=== PATIENT | female | born 1995 | race Caucasian/White ===

== ENCOUNTER 2016-07-06 07:27 | Emergency (ER) | payer OTHER ==
[~2016-07-06] VITALS: Ht 160 cm; Wt 71.3 kg
[~2016-07-06 07:27] MED LIST: B-COTAB18 PO; BCPILLS PO; DIPH25CA5 PO; EPP3/2 IM; IBUP-1459 PO
[2016-07-06 07:30] VITALS: TEMP 36.7; Ht 160 cm; Wt 71.3 kg
[2016-07-06] MEDS ORDERED: FEXO5TAB2 PO (07:58)
[2016-07-06] MEDS ORDERED: PRED20TA PO (07:59)
[2016-07-06] MEDS ORDERED: DIPH1TAB87 PO (08:04)
[2016-07-06 08:54] LABS: BASO % 0.2 %; BASO ABS # 0.02 K/uL (0-0.2); COMPLETE YES; EOS % 0.4 %; IG% 0.3 %; LYMPH % 18.6 %; MEAN CELL VOLUME 83.8 fL (80-100); MEAN CORPUSCULAR HEMOGLOBIN 30.2 pg (25-34); MEAN PLATELET VOLUME 10.1 fL (7.4-10.4); MONO % 4.3 %; NEUT % 76.2 %; PLATELET COUNT 314 K/uL (130-400); RED BLOOD COUNT 5.37 M/uL (4.2-5.4); WHITE BLOOD COUNT 10.76 K/uL (4.8-10.8)
[2016-07-06 09:02] LABS: URINE APPEARANCE CLEAR (CLEAR); URINE BILIRUBIN NEG (NEG); URINE COLOR DK YELLOW; URINE NITRITE NEG (NEG); URINE SPECIFIC GRAVITY 1.011 (1.000-1.030); UROBILINOGEN NEG (NEG)
[2016-07-06 09:03] LABS: PARTIAL THROMBOPLASTIN RATIO 1.1; PROTHROMBIN TIME (PATIENT) 10.9 SECONDS (9.0-12.0)
[2016-07-06 09:06] LABS: MANUAL MICROSCOPIC REQUIRED? NO; REVIEW REQ? NO
[2016-07-06 09:10] LABS: BLOOD UREA NITROGEN 10 mg/dl (7-18); BUN/CREATININE RATIO 13.8 (10-20); CALCIUM 9.3 mg/dl (8.5-10.1); CARBON DIOXIDE 26 mmol/L (21-32); CHLORIDE 104 mmol/L (98-107); CREATININE 0.71 mg/dl (0.60-1.20); GLUCOSE 95 mg/dl (70-99); POTASSIUM 4.1 mmol/L (3.5-5.1); SODIUM 139 mmol/L (136-145)
[2016-07-06 09:14] LABS: ALKALINE PHOSPHATASE 65 U/L (45-117); ALT/SGPT 25 U/L (12-78); AST/SGOT 12 U/L (15-37); C-REACTIVE PROTEIN < 0.29 mg/dl (0-0.29)
--- NOTE | 2016-07-06 09:17 | DIAGNOSTIC IMAGING REPORT ---
CT OF THE HEAD WITHOUT CONTRAST CLINICAL HISTORY: Frontal headaches. Nosebleed. COMPARISON STUDY: No previous studies for comparison. CT DOSE: 614.27 mGy.cm TECHNIQUE: Helical axial images of the head were obtained without IV contrast. Automated exposure control was utilized for the study. FINDINGS: No acute intracranial hemorrhage, midline shift or mass effect is present. Brain volume is normal. Ventricular system is normal. Basilar cisterns are patent. There are no extra-axial collections. Lin-white differentiation is maintained. There are no findings to suggest acute dural sinus thrombosis or acute territorial infarct. There are no significant calvarial abnormalities. Visualized portions of the sinuses and the mastoid air cells are clear. IMPRESSION: No acute intracranial findings. Electronically signed by: Nolan Hastings M.D. 07/06/2016 9:15 AM Dictated Date/Time: 07/06/2016 9:13 AM
[2016-07-06 09:45] LABS: LYME DISEASE AB IGG NEG (NEG); LYME DISEASE AB IGM NEG (NEG)
[2016-07-06] MEDS ORDERED: HYDR-5688 PO (10:09)
--- NOTE | 2016-07-06 10:17 | EMERGENCY ROOM VISIT NOTE ---
History First contact with patient: 07:37 Chief Complaint: RECTAL BLEEDING Stated Complaint: RECTAL BLEEDING,NOSE BLEED,HEADACHE Nursing Triage Summary: Patient c/o rectal bleeding "when I deficate". "Bright red blood". Denies pain. I've pooped Saturday, Saturday and and it's unusual for me to poop 3 times a week". Saturday had a nose bleed that lasted 15 minutes, left sided. Had another yesterday morning and another this morning. Abdominal pain at beginning of the week but it was "due to my period". Nausea for the last month intermittently. Also c/o headache frontal, intermittent, worse with bright light like at the vet clinic and bright lights from passing cars in the dark. X 1 month. History of Present Illness The patient is a 20 year old female who presents to the Emergency Room with multiple complaints, including bright red blood per rectum, mild abdominal cramping, mild intermittent nosebleeds and history of nausea, vomiting and diarrhea last week. 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 She developed a rash on her right forearm earlier last week. She started an 8 day prednisone taper from medicine that she had at home. The patient takes prednisone as needed for seasonal allergies. The patient reports that within a few days, she then started to develop additional GI symptoms. She reports that she only had diarrhea for approximately 24 hours, and the nausea and vomiting also quickly resolved. The patient then started to notice rectal bleeding on Saturday with a large bowel movement. She reports that the bleeding has continually declined. It does not seem to be mixed into the stool. The patient denies any prior history of GI bleed or known hemorrhoids. She has had chronic abdominal and back pain that the mother attributes to premature . At the current time, the patient denies any significant abdominal cramping, and associates current cramping with menstruation. The patient denies or unusual dysmenorrhea. She has also had mild intermittent headaches for several years, with TRANSLITERATOR suggesting that headaches could be secondary to menstruation. Her oral dosing was changed, and has a difference with her headaches. At the current time, she denies any significant discomfort, fevers or chills. Review of Systems HEENT: Denies dizziness, visual problems, hearing loss, tinnitus. Denies difficulty swallowing or oral lesions. PULMONARY: Denies cough, shortness of breath, sputum production or hemoptysis. CARDIOVASCULAR: Denies chest pain, palpitations, dyspnea on exertion, orthopnea or peripheral edema. GASTROINTESTINAL: Denies current diarrhea, constipation, nausea, vomiting, or abdominal pain. GENITOURINARY: Denies dysuria, frequency, urgency or nocturia. NEUROLOGIC: Denies history of epilepsy, CVA, TIA or chronic headaches. MUSCULOSKELETAL: Denies history of joint tenderness/swelling. SKIN: Denies rashes or lesions. PSYCHIATRIC: Denies history of depression or mental illness. ENDOCRINE: Denies history of diabetes or thyroid disorders. Past Medical/Surgical History Medical Problems: (1) History of fracture of nasal bone (2) Lumbar radiculopathy Family History Diabetes mellitus Social History Smoking Status: Never Smoker Marital Status: single Occupation Status: employed Current/Historical Medications Scheduled B-Complex Vitamins (Vitamin B Complex), 1 TAB PO DAILY Control Pills ( Control Pills), 1 TAB PO DAILY Fexofenadine-Pseudoephedrine (Ariane-D 12 Hour Allergy), 1 TAB PO BID Prednisone (Prednisone), 20 MG PO TAPER DOSE Scheduled PRN Diphenhydramine Hcl (Benadryl Allergy), 25 MG PO Q4H PRN for Itching Epinephrine (Epipen), 0.3 MG IM UD PRN for ALLERGIC REACTION Hydrocodone/Acetaminophen 5MG/325MG ([place] 5MG/325MG), 1-2 TABLET PO Q4H PRN for Pain Ibuprofen (Motrin), 400 MG PO Q6H PRN for Pain Allergies Coded Allergies: Bee Venom (Verified Allergy, Severe, ANAPHYLAXIS, 07/06/16) Clavulanic Acid (Unverified Allergy, Mild, Rash, 07/06/16) Latex (Unverified Allergy, Mild, RASH, 07/06/16) Uncoded Allergies: BETALACTAMASEIN (Allergy, Mild, 05/06/09) TYLENOL #4 (Adverse Reaction, Mild, Nausea, 02/05/16) Physical Exam Vital Signs Date Time Temp Pulse Resp B/P Pulse Ox O2 Delivery O2 Flow Rate FiO2 07/06/16 09:28 84 16 126/85 100 Room Air 07/06/16 07:30 36.7 98 16 151/103 99 Room Air Physical Exam CONSTITUTIONAL: Healthy and well nourished. Alert and oriented X 3 with positive affect. Patient does not appear in any acute distress. HEENT: Normocephalic, atraumatic. Pupils equal, round and reactive. Ears and nares are clear with no active epistaxis or prominent Kiesselbach plexus. No scleral icterus or conjunctival pallor. OROPHARYNX: No tonsillar hypertrophy, posterior erythema or other oral lesions. NECK: Full active range of motion without discomfort. No JVD or carotid bruits. No nuchal rigidity. RESPIRATORY: Clear to auscultation bilaterally with no wheezing, crackles, rhonchi or stridor. CARDIOVASCULAR: Regular rate and rhythm with no murmurs, rubs or gallops. GASTROINTESTINAL: Bowel sounds present in all quadrants. Abdomen is soft and nontender to palpation. No hepatosplenomegaly. Negative CVA tenderness. No abdominal rigidity, guarding or rebound. Digital rectal exam was performed to show no obvious external or internal hemorrhoids. Stool Hemoccult was positive. There is soft stool within the rectal vault. MUSCULOSKELETAL: Full range of motion of all joints without discomfort. INTEGUMENTARY: The patient has an erythematous raised rash on her right dorsal forearm with well-defined linear arrangement. There are no vesicles, pustules, excoriation, desquamation or bullae. NEUROLOGIC: Cranial nerves II-XII grossly intact. No focal neurologic deficits noted. Medical Decision & Procedures ER Provider Diagnostic Interpretation: Noncontrast CT of the head does not show any evidence for intracranial bleed, midline shift or mass effect. Radiologist report is as follows: CT OF THE HEAD WITHOUT CONTRAST CLINICAL HISTORY: Frontal headaches. Nosebleed. COMPARISON STUDY: No previous studies for comparison. CT DOSE: 614.27 mGy.cm TECHNIQUE: Helical axial images of the head were obtained without IV contrast. Automated exposure control was utilized for the study. FINDINGS: No acute intracranial hemorrhage, midline shift or mass effect is present. Brain volume is normal. Ventricular system is normal. Basilar cisterns are patent. There are no extra-axial collections. Lin-white differentiation is maintained. There are no findings to suggest acute dural sinus thrombosis or acute territorial infarct. There are no significant calvarial abnormalities. Visualized portions of the sinuses and the mastoid air cells are clear. IMPRESSION: No acute intracranial findings. Laboratory Results 07/06/16 08:33 Red Blood Count 5.37, Mean Corpuscular Volume 83.8, Mean Corpuscular Hemoglobin 30.2, Mean Corpuscular Hemoglobin Concent 36.0, Mean Platelet Volume 10.1, Neutrophils (%) (Auto) 76.2, Lymphocytes (%) (Auto) 18.6, Monocytes (%) (Auto) 4.3, Eosinophils (%) (Auto) 0.4, Basophils (%) (Auto) 0.2, Neutrophils # (Auto) 8.21, Lymphocytes # (Auto) 2.00, Monocytes # (Auto) 0.46, Eosinophils # (Auto) 0.04, Basophils # (Auto) 0.02 07/06/16 08:33 Test 07/06/16 08:33 White Blood Count 10.76 K/uL (4.8-10.8) Red Blood Count 5.37 M/uL (4.2-5.4) Hemoglobin 16.2 g/dL (12.0-16.0) Hematocrit 45.0 % (37-47) Mean Corpuscular Volume 83.8 fL (80-100) Mean Corpuscular Hemoglobin 30.2 pg (25-34) Mean Corpuscular Hemoglobin Concent 36.0 g/dl (32-36) Platelet Count 314 K/uL (130-400) Mean Platelet Volume 10.1 fL (7.4-10.4) Neutrophils (%) (Auto) 76.2 % Lymphocytes (%) (Auto) 18.6 % Monocytes (%) (Auto) 4.3 % Eosinophils (%) (Auto) 0.4 % Basophils (%) (Auto) 0.2 % Neutrophils # (Auto) 8.21 K/uL (1.4-6.5) Lymphocytes # (Auto) 2.00 K/uL (1.2-3.4) Monocytes # (Auto) 0.46 K/uL (0.11-0.59) Eosinophils # (Auto) 0.04 K/uL (0-0.5) Basophils # (Auto) 0.02 K/uL (0-0.2) RDW Standard Deviation 36.6 fL (36.4-46.3) RDW Coefficient of Variation 12.0 % (11.5-14.5) Immature Granulocyte % (Auto) 0.3 % Immature Granulocyte # (Auto) 0.03 K/uL (0.00-0.02) Erythrocyte Sedimentation Rate 5 mm/hr (0-21) Prothrombin Time 10.9 SECONDS (9.0-12.0) Prothromb Time International Ratio 1.0 (0.9-1.1) Activated Partial Thromboplast Time 28.9 SECONDS (21.0-31.0) Partial Thromboplastin Ratio 1.1 Urine Color DK YELLOW Urine Appearance CLEAR (CLEAR) Urine pH 7.0 (4.5-7.5) Urine Specific [place] 1.011 (1.000-1.030) Urine Protein NEG (NEG) Urine Glucose (UA) NEG (NEG) Urine Ketones NEG (NEG) Urine Occult Blood TRACE (NEG) Urine Nitrite NEG (NEG) Urine Bilirubin NEG (NEG) Urine Urobilinogen NEG (NEG) Urine Leukocyte Esterase TRACE (NEG) Urine WBC (Auto) 1-5 /hpf (0-5) Urine RBC (Auto) 0-4 /hpf (0-4) Urine Hyaline Casts (Auto) 0 /lpf (0-5) Urine Epithelial Cells (Auto) 5-10 /lpf (0-5) Urine Bacteria (Auto) NEG (NEG) Urine Test NEG (NEG) Anion Gap 9.0 mmol/L (3-11) Est Creatinine Clear Calc Drug Dose 117.6 ml/min Estimated GFR () 140.1 Estimated GFR (Non- 120.9 BUN/Creatinine Ratio 13.8 (10-20) Calcium Level 9.3 mg/dl (8.5-10.1) Total Bilirubin 0.4 mg/dl (0.2-1) Direct Bilirubin 0.1 mg/dl (0-0.2) Aspartate Amino Transf (AST/SGOT) 12 U/L (15-37) Alanine Aminotransferase (ALT/SGPT) 25 U/L (12-78) Alkaline Phosphatase 65 U/L (45-117) Total Creatine Kinase 39 U/L (26-192) C-Reactive Protein < 0.29 mg/dl (0-0.29) Total Protein 7.5 gm/dl (6.4-8.2) Albumin 4.1 gm/dl (3.4-5.0) Lipase 134 U/L (73-393) Lyme Disease IgG Antibody NEG (NEG) Lyme Disease IgM Antibody NEG (NEG) The above labs were reviewed and are grossly normal. Lyme screen is negative. ED Course Patient history and physical exam were performed. Nurse's notes were reviewed. Vital signs were reviewed and were normal. The patient did not appear in any acute distress. IV access was established, and labs were drawn. The patient refused any analgesics. Review of labs shows no abnormal findings. The patient is not anemic. She has no lymphocytosis. LFTs and lipase are normal. CRP and sedimentation rate are normal. Urinalysis is not suggestive of infection. Noncontrast CT of the head also is unremarkable. The patient was unable to provide a stool sample. She was advised of her normal workup today. I did encourage her to follow-up with [facility] gastroenterology for further reevaluation and management. She was instructed to return to the emergency department over the weekend for any progressively worsening bleeding, pain or fever. Regarding the patient's intermittent headaches and back pain, the patient reports she cannot tolerate tramadol or oxycodone because of sedating side effects. The patient reports that she has tolerated Vicodin in the past. The patient was provided a prescription in for [place] 5/325, dispensed #20 without refills. She was advised that this medication can cause constipation and drowsiness. The patient was happy with plan of care, voiced understanding of all discharge instructions, and was discharged with her mother. Medical Decision Patient presents to the emergency Department with primary complaint of bright red rectal bleeding that is improving at this point. Her physical exam does not show any evidence for hemorrhoids. Bleeding polyp was also considered, along with inflammatory bowel condition. CRP and sedimentation rate are normal. The patient's coagulation studies are normal. She is not anemic. She is also afebrile and has no leukocytosis. At this point, I do not feel that any advanced abdominal imaging is warranted. Her abdominal exam is benign, and I therefore do not suspect diverticulitis, appendicitis, ischemic gut or mesenteric adenitis. The patient reports that she does have intermittent nosebleeds. Her exam today does not show any intranasal findings. Head CT does not show any evidence for intracranial mass or bleed. At this point, I do feel that the patient is safe for outpatient management. She was instructed to return with any further concerns. Impression Primary Impression: Rectal bleed Additional Impressions: Generalized headaches Epistaxis Departure Information Prescriptions Hydrocodone/Acetaminophen 5MG/325MG ([place] 5MG/325MG) Tab 1-2 TABLET PO Q4H Y for Pain, #20 TAB For Initial Treatment Prov: Camden Wakefield PA 07/06/16 Referrals Agnieszka Britt,P.A. (PCP) Patient Instructions My [facility] Problem Qualifiers
[2016-07-06 10:27] VITALS: BP 116/79; PULSE 80; O2SAT 100
== END 2016-07-06 10:28 | disposition home or self-care (01) ==
LOC: C.EDB 07:28 → C.EDA 10:28
DX: K62.5 Hemorrhage of anus and rectum (principal); R51 Headache; R04.0 Epistaxis; R10.9 Unspecified abdominal pain; G89.29 Other chronic pain; M54.16 Radiculopathy, lumbar region; Z83.3 Family history of diabetes mellitus; Z79.3 Long term (current) use of hormonal contraceptives

== ENCOUNTER → 2016-07-19 | Outpatient (CLI) | payer OTHER ==
[~2016-07-19] MED LIST changes: +DIPH1TAB87 PO; -DIPH25CA5 PO; +FEXO5TAB2 PO; +HYDR-5688 PO; +PRED20TA PO
== END | disposition home or self-care (01) ==
LOC: C.LABSPEC 19:00
PROVIDERS: ATTEND Internal Medicine Gastroenterology
DX: K62.5 Hemorrhage of anus and rectum (principal); R11.0 Nausea

== ENCOUNTER → 2016-07-26 | Outpatient (CLI) | payer OTHER ==
--- NOTE | 2016-07-26 07:51 | DIAGNOSTIC IMAGING REPORT ---
ULTRASOUND ABDOMEN COMPLETE CLINICAL HISTORY: Nausea. Rectal bleeding. COMPARISON STUDY: Abdominal CT dated 12/05/2010. TECHNIQUE: Real-time, grayscale, and color flow sonography of the abdomen was performed. Images are reviewed in the transverse and longitudinal planes. FINDINGS: Liver: The liver is normal in size and echotexture. There is no intrahepatic biliary ductal dilatation. The main portal vein is patent. Gallbladder: The gallbladder is normal in appearance. No gallstones are identified. There is no gallbladder wall thickening or pericholecystic fluid. A sonographic Perez's sign is reportedly absent. The common bile duct measures up to 0.3 cm in diameter. Pancreas: Visualized portions of the pancreatic head and body are normal in appearance. Spleen: The spleen is normal in size and echotexture, measuring 11.0 cm in length. Kidneys: The kidneys are normal in size and echotexture. There is no hydronephrosis. The right kidney measures 10.8 cm in length and the left kidney measures 9.8 cm in length. No shadowing calculi are identified. Abdominal vasculature: Visualized portions of the abdominal aorta and IVC are normal in appearance. Ascites: None. IMPRESSION: Unremarkable sonographic assessment of the abdomen. Electronically signed by: Cali Yen M.D. 07/26/2016 7:50 AM Dictated Date/Time: 07/26/2016 7:49 AM
== END | disposition home or self-care (01) ==
LOC: C.ULTR 06:34
PROVIDERS: ATTEND Internal Medicine Gastroenterology
DX: K62.5 Hemorrhage of anus and rectum (principal); R11.0 Nausea

== ENCOUNTER → 2017-02-06 | Outpatient (CLI) | payer OTHER ==
[~2017-02-06] MED LIST changes: -HYDR-5688 PO
[2017-02-06 11:20] LABS: LYME DISEASE AB IGG NEG (NEG); LYME DISEASE AB IGM NEG (NEG)
== END ==
LOC: C.LAB1850 09:04
PROVIDERS: ATTEND Physician Assistant
DX: L30.9 Dermatitis, unspecified (principal)

== ENCOUNTER 2023-05-10 04:52 | Inpatient (IN) ==
[2023-05-10] MEDS ORDERED: LIDOCAINE 1% LOCAL 20 ML VIAL INFIL PRN (06:51)
--- NOTE | 2023-05-10 06:54 | History & Physical Report ---
Date of Service May 10, 2023 Assessment & Plan (1) Supervision of normal intrauterine in primigravida: Plan: Admit to L&D. EFM/toco. Labs. IV. OK for epidural if she desires. History of Present Illness Chief Complaint: contractions Primary Care Provider: Dipti Cantrell PA-C 27yo @ 38 04/07, contractions overnight. No ROM. + movement. Membranes stripped in office yesterday. FHT Cat 1 Yeoman Q 2 SVE 4cm on arrival, 6cm 1h later per RN exam. Allergies Allergy/AdvReac Type Severity Reaction Status Date / Time bee venom protein (honey bee) Allergy Rash Verified 05/10/23 05:13 celecoxib Allergy Rash Verified 05/10/23 05:13 codeine Allergy Rash Verified 05/10/23 05:13 [From Tylenol-Codeine] latex Allergy Rash Verified 05/10/23 05:13 thimerosal Allergy Rash Verified 05/10/23 05:13 amoxicillin [From Augmentin] AdvReac rash Verified 05/09/23 10:43 clavulanic acid AdvReac rash Verified 05/09/23 10:43 [From Augmentin] moxifloxacin [From Avelox] AdvReac rash Verified 05/09/23 10:43 phenylenediamine Allergy Rash Uncoded 05/10/23 05:13 Home Medications Medication Instructions Recorded Confirmed Type cetirizine 10 mg tablet (Zyrtec) 10 mg PO DAILY 12/04/18 05/10/23 History vitamin no.167-folic acid tab PO 09/20/22 05/09/23 History 400 mcg-dha 25 mg chewable tablet (One-A-Day ) breast pump #1 ea 03/28/23 05/09/23 Rx Patient History Medical History (Updated 05/10/23 @ 05:08 by Marva Amezcua RN) Fibromyalgia Left knee pain Diffuse myofascial pain syndrome Acute exacerbation of chronic low back pain Allergic dermatitis Allergic rhinitis Contraception management Disc disorder of thoracic region Lumbar herniated disc Menorrhagia Pelvic pain in female Tinea corporis Pyelonephritis Closed fracture of nasal bones Thoracic facet syndrome Lumbar facet joint syndrome Lower back pain Upper back pain Tension headache Finger fracture, right V Y Flap and reconstructions index finger on right Lumbar radiculopathy Back pain with left-sided sciatica Allergy to bee sting Surgical History (Updated 05/10/23 @ 06:14 by Marva Amezcua RN) History of radiofrequency ablation (RFA) of nerve of lumbar spine History of colonoscopy History of tonsillectomy and adenoidectomy H/O wisdom tooth extraction Family History Mother Allergy Twin Sister Spina bifida Father LAURE (obstructive sleep apnea) Aunt Breast cancer BRCA negative Grandmother (Paternal) Breast cancer Other Asthma Cardiac disorder Colorectal cancer Diabetes Heart disease Hypertension Skin cancer Denies family history of Ovarian cancer Social History (Updated 05/10/23 @ 05:10 by Marva Amezcua RN) Smoking Status: Never smoker Do You Dip or Chew Tobacco: No; Hx Alcohol Use: No Hx Substance Use: No Preferred Language: Citizen Of [place] Communication Ability: Effective Visual Impairment: No Limitations Hearing Ability: Normal Specimen Collector Required: No Beliefs That Will Affect Care: None marital status: Single marital status details: Panchito [phone] Current Living Situation: Significant Other Current Living Situation Comment: lives with fob, current occupational status: employed current occupation: [employer] Other Information That Helps Us Care for You: No Feels Safe at Home: Yes Safety Concerns: Feels Safe At This Time Assistive Devices: None Review of Systems All systems reviewed & are unremarkable except as noted in HPI & below Physical Exam Constitutional: WD/WN, vitals as above Respiratory: normal respiratory effort, lungs clear to auscultation no respiratory distress Cardiovascular: Rate/Rhythm: regular rate and regular rhythm Gastrointestinal (Abdomen): Inspection/Auscultation: abdomen normal to inspection Percussion/Palpation: abdomen soft; abdomen nontender Gravid. No s/s chorio or abruption. Skin: no rashes, warm and dry Psychiatric: A+Ox3, euthymic affect Results & Data Vital Signs (Past 12 Hours) Vital Signs Temp Pulse Resp BP 05/10/23 06:37 94 H 143/87 H 05/10/23 05:30 18 05/10/23 05:30 18 05/10/23 05:14 36.5 C 18 05/10/23 05:05 96 H 143/89 H Coding Level of Care Code None Diagnoses Supervision of normal intrauterine in primigravida Z34.00
[2023-05-10] MEDS: LACTATED RINGER'S 1,000 ML IV PRN (07:00)
[2023-05-10 07:30] LABS: Hematocrit (blood only) 34.8 % (37.0-47.0); Hemoglobin 11.6 g/dl (12.0-16.0); Mean Corpuscular Hgb Conc 33.3 g/dL (32.0-36.0); Mean Corpuscular Volume 84.1 fL (80.0-100.0); Mean Platelet Volume 10.7 fL (9.4-12.4); Platelet Count 204 K/uL (130-400); RDW Coefficient of Variation 13.8 % (11.5-14.5); RDW Standard Deviation 42.2 fL (36.4-46.3); Red Blood Count 4.14 M/uL (4.20-5.40); White Blood Count 11.68 K/ul (4.8-10.8)
[2023-05-10 07:51] LABS: Albumin Globulin Ratio 1.2 (0.9-2); Albumin Level 3.3 gm/dl (3.4-5.0); BUN Creatinine Ratio 13.8 (10-20); Bilirubin,Total 0.2 mg/dl (0.2-1.0); Calcium 8.4 mg/dl (8.6-10.3); Creatinine Clr Calc Pharmacy 146.6 ml/min; Est GFR (African American) 139.1 ml/min; Globulin 2.7 gm/dl (2.5-4.0); Potassium 3.8 mmol/L (3.5-5.1)
[2023-05-10] MEDS: fentANYL 2 MCG/ML BUPIVacaine 0.125%-NSS 100ML BAG ONE (07:59)
[2023-05-10] MEDS: SODIUM CHLORIDE 0.9% PF INJ 10 ML VIAL ONE (08:03)
[2023-05-10] MEDS: LIDOCAINE 2%/EPINEPHRINE 1:200,000 20 ML PF ONE (08:03)
[2023-05-10] MEDS: BUPIVACAINE 0.25% PF 30 ML VIAL ONE (08:03)
[2023-05-10] MEDS ORDERED: fentaNYL citrate PF 100 MCG/2 ML VIAL EPI PRN (08:08)
[2023-05-10] MEDS ORDERED: SODIUM CHLORIDE 0.9% PF INJ 10 ML VIAL EPI PRN (08:08)
[2023-05-10] MEDS ORDERED: ONDANSETRON INJ 2 MG/ML 2 ML VIAL IV PRN (08:08)
[2023-05-10] MEDS ORDERED: BUPIVACAINE 0.25% PF 30 ML VIAL EPI PRN (08:08)
[2023-05-10] MEDS ORDERED: diphenhydrAMINE 50 MG/ML VIAL IV PRN (08:08)
[2023-05-10] MEDS ORDERED: ePHEDrine sulfate 50 MG/ML AMP IV PRN (08:08)
[2023-05-10] MEDS ORDERED: NALOXONE HCL 1 MG in SODIUM CHLORIDE 0.9% 1,000 ML IV PRN (08:08)
[2023-05-10] MEDS ORDERED: NALBUPHINE HCL 5 MG in SYRINGE 0 ML IV PRN (08:08)
[2023-05-10] MEDS ORDERED: LIDOCAINE 2% MPF LOCAL 5 ML VIAL EPI PRN (08:08)
[2023-05-10] MEDS ORDERED: fentANYL 2 MCG/ML BUPIVacaine 0.125%-NSS 100ML BAG EPI PRN (08:08)
[2023-05-10] MEDS ORDERED: ROPIVACAINE 0.5% PF 5 MG/ML 20 ML VIAL EPI PRN (08:08)
[2023-05-10] MEDS ORDERED: NALOXONE HCL 0.4 MG/1 ML VIAL/CARP IV PRN (08:08)
--- NOTE | 2023-05-10 08:08 | Anesthesiology Consultation ---
Date of Service May 10, 2023 Assessment & Plan Chart Review Chart Review: Patient NOT seen in Pre Admission Testing and Acceptable Risk for Labor Epidural Consults Requested none ASA ASA2 Proposed Anesthesia Anesthesia Type: Labor Epidural Risk / Benefits Reviewed With: PT / POA / Parent / Guardian, Accepts Plan and Informed Consent Obtained History Height/Weight Height: 5 ft 4 in Weight: 99.79 kg Allergies Allergy/AdvReac Type Severity Reaction Status Date / Time bee venom protein (honey bee) Allergy Rash Verified 05/10/23 05:13 celecoxib Allergy Rash Verified 05/10/23 05:13 codeine Allergy Rash Verified 05/10/23 05:13 [From Tylenol-Codeine] latex Allergy Rash Verified 05/10/23 05:13 thimerosal Allergy Rash Verified 05/10/23 05:13 amoxicillin [From Augmentin] AdvReac rash Verified 05/09/23 10:43 clavulanic acid AdvReac rash Verified 05/09/23 10:43 [From Augmentin] moxifloxacin [From Avelox] AdvReac rash Verified 05/09/23 10:43 phenylenediamine Allergy Rash Uncoded 05/10/23 05:13 Medications Home Medications Medication Instructions Recorded Confirmed Last Taken cetirizine 10 mg tablet (Zyrtec) 10 mg PO DAILY 12/04/18 05/10/23 05/09/23 vitamin no.167-folic acid tab PO 09/20/22 05/09/23 05/09/23 400 mcg-dha 25 mg chewable tablet (One-A-Day ) breast pump #1 ea 03/28/23 05/09/23 Unknown Active Medications Generic Name Dose Route Start Last Admin Trade Name Aviq PRN Reason Stop Dose Admin Lactated Ringer's 1,000 mls @ 125 mls/hr 05/10/23 06:51 05/10/23 07:45 Lr IV 05/12/23 06:50 125 mls/hr .Q8H PRN Infusion L&D Protocol Protocol Past Medical History Medical History (Updated 05/10/23 @ 05:08 by Marva mAezcua RN) Fibromyalgia Left knee pain Diffuse myofascial pain syndrome Acute exacerbation of chronic low back pain Allergic dermatitis Allergic rhinitis Contraception management Disc disorder of thoracic region Lumbar herniated disc Menorrhagia Pelvic pain in female Tinea corporis Pyelonephritis Closed fracture of nasal bones Thoracic facet syndrome Lumbar facet joint syndrome Lower back pain Upper back pain Tension headache Finger fracture, right V Y Flap and reconstructions index finger on right Lumbar radiculopathy Back pain with left-sided sciatica Allergy to bee sting Exercise / Class Metabolic Activity II 4-5 Yardwork/Stairs/Walk up hill Past Family History Family History Mother Allergy Twin Sister Spina bifida Father LAURE (obstructive sleep apnea) Aunt Breast cancer BRCA negative Grandmother (Paternal) Breast cancer Other Asthma Cardiac disorder Colorectal cancer Diabetes Heart disease Hypertension Skin cancer Denies family history of Ovarian cancer Past Surgical History Surgical History (Updated 05/10/23 @ 06:14 by Marva Amezcua RN) History of radiofrequency ablation (RFA) of nerve of lumbar spine History of colonoscopy History of tonsillectomy and adenoidectomy H/O wisdom tooth extraction Past Anesthesia History No Hx of Anesthesia Complications and No Family Hx of Anesthesia Complications History of PONV No Hx of PONV and No Hx of Motion Sickness Social History Smoking Status: Never smoker Do You Dip or Chew Tobacco: No Hx Alcohol Use: No alcohol intake frequency: holidays/special occasions only Hx Substance Use: No Physical Exam Vital Signs Last Vital Signs Temp 36.5 C 05/10/23 07:22 Pulse 84 05/10/23 08:06 Resp 24 05/10/23 07:22 BP 128/79 05/10/23 08:05 Pulse Ox 98 05/10/23 08:06 ENMT Mouth: no dentition abnormality Thyromental Distance: > or= 3.5 Finger Breadths Mallampati Class: II Neck normal visual inspection Respiratory normal respiratory effort Auscultation: lungs clear to auscultation bilaterally Cardiovascular Rate/Rhythm: regular rate and regular rhythm Psychiatric Orientation: alert Testing Laboratory Results 05/10/23 07:10 05/10/23 07:10 Blood Type Cancelled 05/10/23 07:10 Antibody Screen Cancelled 05/10/23 07:10
[2023-05-10] MEDS: OXYTOCIN 30 UNITS/NSS 30 UNITS/500 ML BAG IV PRN (12:43)
[2023-05-10] MEDS ORDERED: bisacodyL 10 MG SUPP PR PRN (12:48)
[2023-05-10] MEDS ORDERED: OXYTOCIN 30 UNITS/NSS 30 UNITS/500 ML BAG IV PRN (12:48)
[2023-05-10] MEDS ORDERED: ACETAMINOPHEN 325 MG TAB PO PRN (12:48)
[2023-05-10] MEDS ORDERED: HYDROCORTISONE ACETATE 25 MG SUPP PR PRN (12:48)
--- NOTE | 2023-05-10 12:53 | Delivery Summary ---
Vaginal Delivery Summary Date of Service May 10, 2023 Vaginal Delivery Summary and 2nd Degree LAC [facility] Vaginal Delivery Charge Delivery Type Details: and 2nd Degree LAC
--- NOTE | 2023-05-10 14:00 | Anesthesia Procedure Note ---
Date of Service May 10, 2023 Anesthesia Post Epidural Note Vital Signs Vital Signs: Temp Pulse Resp BP Pulse Ox 36.2 C L 74 18 134/82 97 05/10/23 12:45 05/10/23 13:45 05/10/23 13:00 05/10/23 13:45 05/10/23 12:46 Pain Intensity Lower Medial Back: Pain Intensity: 0 Notes Mental Status: alert / awake / arousable Nausea / Vomiting: adequately controlled Pain: adequately controlled Airway Patency, RR, SpO2: stable & adequate BP & HR: stable & adequate Hydration State: stable & adequate Neuraxial Anesthesia: was administered and sensory block is resolving Anesthetic Complications: no major complications apparent and Pt Satisfied with anesthetic care Epidural: Removed without complications and With tip intact
[2023-05-10] MEDS: SODIUM CHLORIDE 0.9% PF INJ 10 ML VIAL EPI STA (14:15)
[2023-05-10] MEDS: fentaNYL citrate PF 100 MCG/2 ML VIAL ONE (14:15)
[2023-05-10] MEDS: LIDOCAINE 2%/EPINEPHRINE 1:200,000 20 ML PF EPI STA (14:15)
[2023-05-10] MEDS: DIPHTHER/TETAN/PERTUS Vaccine (Tdap, Adol/Adult) 0.5mL IM ONE (14:15)
[2023-05-10] MEDS: ePHEDrine sulfate 50 MG/ML AMP ONE (14:15)
[2023-05-10] MEDS: BUPIVACAINE 0.25% PF 30 ML VIAL EPI STA (14:15)
[2023-05-10] MEDS: fentaNYL citrate PF 100 MCG/2 ML VIAL EPI STA (14:15)
[2023-05-10] MEDS: IBUPROFEN 600 MG TAB PO PRN (17:43)
[2023-05-10] MEDS: BENZOCAINE 20% SPRY 85 APPLN/85 GM CAN EXT PRN (17:44)
[2023-05-10] MEDS: CETIRIZINE HCL 10 MG TABLET PO SCH (17:53)
[2023-05-10] MEDS: DOCUSATE SODIUM 100 MG CAP PO SCH (22:06)
--- NOTE | 2023-05-11 08:22 | Obstetrical Progress Note ---
Date of Service May 11, 2023 Assessment & Plan (1) Encounter for care and examination after delivery: Day 1 S/p . Doing well. Routine post care Subjective Ambulation: ambulating normally Voiding: no voiding problems Passing Gas:: Yes Diet Tolerance:: regular diet Lochia:: Moderate Feeding Type:: breast feeding Physical Exam Constitutional WD/WN, vitals as above Respiratory normal respiratory effort; no respiratory distress and no labored breathing Gastrointestinal (Abdomen) Inspection/Auscultation: abdomen normal to inspection; abdomen not distended Percussion/Palpation: abdomen soft; abdomen nontender, no guarding and abdomen not rigid Genitourinary OB Exam Abdomen: + fundal height Fundus: + firm and + relation to umbilicus (Below); not tender or not boggy Results & Data Vital Signs (Past 12 Hours) Vital Signs Temp Pulse Resp BP Pulse Ox O2 Del Method 05/11/23 04:00 36.4 C L 94 H 16 132/86 96 Room Air 05/10/23 22:46 36.7 C 89 18 123/87 97 Room Air
[2023-05-11] MEDS: PRENATAL VITAMIN 1 TAB PO SCH (08:39)
[2023-05-11] MEDS: FERROUS SULFATE 325 MG TAB PO SCH (08:39)
[2023-05-11] MEDS: HYDROCORTISONE 1% CRM 30 GM TUBE EXT PRN (15:30)
[2023-05-11] MEDS: bisacodyL 5 MG TABEC PO SCH (20:44)
--- NOTE | 2023-05-12 08:14 | Obstetrical Progress Note ---
Date of Service May 12, 2023 Assessment & Plan (1) Encounter for care and examination after delivery: Routine PP care, OK for d/c Subjective Ambulation: ambulating normally Voiding: no voiding problems Passing Gas:: Yes Diet Tolerance:: regular diet Lochia:: Small Feeding Type:: bottle feeding Current Pain Level(1-10): 0 Physical Exam Constitutional WD/WN, vitals as above Eyes PERRL, conjunctivae normal, anicteric sclerae ENMT external ear and nose normal, oropharynx normal Neck trachea midline, no thyromegaly Respiratory normal respiratory effort and able to speak in complete sentences; no respiratory distress, no labored breathing and does not use accessory muscles Cardiovascular Rate/Rhythm: regular rate and regular rhythm Extremities: no calf tenderness and no pedal edema Chest (Breasts) Breast: normal inspection of breasts Gastrointestinal (Abdomen) Inspection/Auscultation: abdomen normal to inspection; abdomen not distended Musculoskeletal no cyanosis or clubbing, extremities motor strength 5/5 Skin no rashes, warm and dry Neurologic patellar DTR's 2+ bilat, sensation intact Psychiatric A+Ox3, euthymic affect Genitourinary Speculum/Bimanual Exam: uterus nontender OB Exam Abdomen: + fundal height (at umbilicus) Fundus: + firm Results & Data Vital Signs (Past 12 Hours) Vital Signs Temp Pulse Resp BP Pulse Ox O2 Del Method 05/11/23 23:01 97.5 F L 87 16 116/80 99 Room Air 05/11/23 20:45 98.2 F 98 H 18 129/87
== END 2023-05-12 13:15 | disposition home or self-care (01) | DRG 807 ==
LOC: OPB 04:52 → 4S1 04:56 → 4E2 16:42